=== PATIENT | male | born 1960 | race Hispanic/Latino ===

== ENCOUNTER 2018-09-28 09:35 | Day surgery (SDC) | payer BC ==
[2018-09-21 09:46] VITALS: BMI 33.9
[2018-09-28] MEDS ORDERED: Midazolam 2 MG/2 ML VIAL ONE ×2 (12:13→12:40)
[2018-09-28] MEDS ORDERED: Flumazenil 0.1 mg/ml Inj (5ml) IVP ONE (12:13)
[2018-09-28] MEDS ORDERED: Naloxone 0.4 mg/ml Inj (Adult) ONE (12:14)
[2018-09-28] MEDS ORDERED: Midazolam 2 MG/2 ML VIAL IV ONE ×8 (12:20→12:41)
[2018-09-28] MEDS ORDERED: Sodium Chloride 0.9% 1,000 ML IV SCH (13:00)
[2018-09-28 13:21] VITALS: RESP 18
[2018-09-28 14:01] VITALS: BP 102/56; PULSE 78; TEMP 97.8; O2SAT 98
--- NOTE | 2018-09-28 14:44 | CARD ---
APPROVED REPORT Date of service: 09/28/2018 EXAM: Transesophageal echocardiogram with color flow Doppler and Synchronized Cardioversion. INDICATION Atrial Fibrillation Reason For Test : RAYSA and Cardioversion PROCEDURE After obtaining informed consent, patient underwent transesophageal echo in the Echo Lab. Type of Sedation : Conscious Sedation Sedation was administered by Dr. avery. Sedation was achieved with Versed and fentanyl 7 mg and 200 mcg intravenously. Transesophageal probe was inserted and advanced into esophagus without difficulty. Echo enhancement indication: R/O Septal defect. Echo enhancement agent administered: Agitated Saline The RAYSA was performed without complications. Synchronized Cardioversion attempted: Successful Synchronized Cardioversion acheived with 200 Joules after first attempt(s). Rhythm following Synchronized Cardioversion: Normal Sinus Rhythm Throughout the procedure, the blood pressure, pulse oximetry, cardiac rhythm, and rate were monitored. The patient tolerated the procedure without adverse effects. Recovery from conscious sedation was uneventful and vital signs were stable. LEFT VENTRICLE The left ventricle is normal size. There is borderline concentric left ventricular hypertrophy. Left ventricle systolic function is low normal.EF-50-55% ( A fib) There is normal LV segmental wall motion. afib No left ventricle thrombus noted on this study. There is no ventricular septal defect visualized. There is no left ventricular aneurysm. There is no mass noted in the left ventricle. RIGHT VENTRICLE The right ventricle is normal size. There is normal right ventricular wall thickness. The right ventricular systolic function is normal. ATRIA The left atrium is mildly dilated. The right atrium is mildly dilated. 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 AORTIC VALVE Focal nodular sclerosisd. There is trace aortic regurgitation. There is no aortic valvular stenosis. There is no aortic valvular vegetation. MITRAL VALVE The mitral valve is thickened but opens well. There is no evidence of mitral valve prolapse. There is no mitral valve stenosis. Mitral regurgitation is mild to moderate. TRICUSPID VALVE The tricuspid valve leaflets are thickened , but open well. There is mild tricuspid regurgitation. There is no tricuspid valve prolapse or vegetation. There is no tricuspid valve stenosis. PULMONIC VALVE The pulmonary valve is normal in structure. There is trace to mild pulmonic valvular regurgitation. There is no pulmonic valvular stenosis. GREAT VESSELS The aortic root is normal in size. The ascending aorta is normal in size. The pulmonary artery is normal. The IVC is normal in size and collapses >50% with inspiration. PERICARDIAL EFFUSION There is no pericardial effusion. There is no pleural effusion. <Conclusion> The left ventricle is normal size. There is borderline concentric left ventricular hypertrophy. 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 Mitral regurgitation is mild to moderate. There is mild tricuspid regurgitation. There is trace to mild pulmonic valvular regurgitation. The IVC is normal in size and collapses >50% with inspiration. There is no pericardial effusion. No thrombus noted. Minimal plaque in descending aorta. Velicitity in ANAYELI more than 0.4 m/s No Cotra indicatin to [employer], 200 Joules synchronized cardioversion done. pt converted to NSR.
--- NOTE | 2018-09-29 09:03 | CARD ---
APPROVED REPORT Date of service: 09/28/2018 EKG Measurement Heart [id number] <Conclusion> Normal sinus rhythm Possible Left atrial enlargement Nonspecific ST and T wave abnormality
== END 2018-09-28 14:45 | disposition home or self-care (01) ==
LOC: CATH 09:35
PROVIDERS: ATTEND Internal Medicine Cardiovascular Disease
DX: I48.91 Unspecified atrial fibrillation (principal); I10 Essential (primary) hypertension; I34.0 Nonrheumatic mitral (valve) insufficiency
CPT/HCPCS: 92960; 93312; J2250; J3010; J7030